=== PATIENT | male | born 1985 | race African-American/Black ===

== ENCOUNTER 2016-12-06 19:14 | Emergency (ER) | payer OTHER ==
[~2016-12-06] VITALS: Ht 180.3 cm; Wt 68.2 kg
[~2016-12-06 19:14] MED LIST: INSU100C6 SQ; LEVVL SQ
[2016-12-06] MEDS ORDERED: SODIUM CHLORIDE 0.9% 1,000 ML IV ONE (20:57)
[2016-12-06] MEDS ORDERED: TRAMADOL 50MG TABLET PO ONE (21:00)
[2016-12-06] MEDS ORDERED: MORPHINE SULFATE 4 MG/ML CPJ (NOT FOR IM USE) IV ONE (21:15)
[2016-12-06] MEDS ORDERED: LIDOCAINE HCL 1% 20ML VIAL (Pyxis) INJ MC ONE (21:15)
[2016-12-06] MEDS ORDERED: TETANUS, DIPHTHERIA, PERTUSSIS VAC/PF 0.5ML (>7YR OLD) IM ONE (21:15)
[2016-12-06] MEDS ORDERED: CEFAZOLIN 1000MG PREMIX 50 ML IV ONE (21:15)
[2016-12-07] MEDS ORDERED: MORPHINE SULFATE 4 MG/ML CPJ (NOT FOR IM USE) IV ONE (00:30)
[2016-12-07] MEDS ORDERED: INSULIN REGULAR (HUMULIN R) 300UNITS/3ML IV ONE (01:00)
[2016-12-07 01:07] VITALS: BP 146/82
== END 2016-12-07 01:24 | disposition short-term general hospital (02) ==
LOC: ER 21:29
DX: S62.357B Nondisplaced fracture of shaft of fifth metacarpal bone, left hand, initial encounter for open fracture (principal); S62.391B Other fracture of second metacarpal bone, left hand, initial encounter for open fracture; S62.234B Other nondisplaced fracture of base of first metacarpal bone, right hand, initial encounter for open fracture; S62.34 Nondisplaced fracture of base of other metacarpal bone; E11.9 Type 2 diabetes mellitus without complications; Z79.4 Long term (current) use of insulin; W17.89XA Other fall from one level to another, initial encounter; W26.8XXA Contact with other sharp object(s), not elsewhere classified, initial encounter; Y93.89 Activity, other specified; Y92.89 Other specified places as the place of occurrence of the external cause
CPT/HCPCS: 29125; 73130; 82962; 90715; 96361; 96374; 96375; 96376; 99285; J0690; J1815; J2270; J3490; J7030; X7700; Z7610